=== PATIENT | female | born 1990 | race Caucasian/White ===

== ENCOUNTER 2019-03-04 10:32 | Emergency (ER) | payer OTHER ==
[~2019-03-04] VITALS: Ht 160 cm; Wt 65.8 kg
== END 2019-03-04 12:54 | disposition home or self-care (01) ==
LOC: ER 10:32
DX: S60.561A Insect bite (nonvenomous) of right hand, initial encounter (principal); R60.0 Localized edema; W57.XXXA Bitten or stung by nonvenomous insect and other nonvenomous arthropods, initial encounter; Y93.89 Activity, other specified; Y92.832 Beach as the place of occurrence of the external cause; Y99.8 Other external cause status